=== PATIENT | female | born 1985 ===

== ENCOUNTER 2018-09-17 07:00 | Inpatient (IN) | payer OTHER ==
[2018-09-17] MEDS ORDERED: Lactated Ringer's 1,000 ML IV ONE (07:59)
[2018-09-17] MEDS ORDERED: Sodium Citrate/Citric Acid 15 ml Sol PO ONE (07:59)
[2018-09-17] MEDS ORDERED: cefOXitin IV 2 gm in Dextrose 2 GM/50 ML BAG IVPB ONE ×2 (07:59→09:17)
[2018-09-17 08:31] LABS: BASO # 0.1 K/uL (0.0-0.2); BASO % 0.7 % (0.0-2.0); EOS % 0.6 % (0.0-4.0); HEMOGLOBIN 11.6 g/dL (11.0-16.0); LYMPH # 1.8 K/uL (1.0-4.3); LYMPH % 23.4 % (20.0-40.0); MEAN CORPUSCULAR HEMOGLOBIN 28.8 pg (27.0-31.0); MEAN CORPUSCULAR HGB CONC 33.1 g/dL (33.0-37.0); MEAN PLATELET VOLUME 9.9 fL (7.2-11.7); MONO # 0.6 K/uL (0.0-0.8); MONO % 7.7 % (0.0-10.0); NEUT # 5.1 K/uL (1.8-7.0); NEUT % 67.6 % (50.0-75.0); NRBC % 0.1 % (0.0-2.0); RBC 4.03 Mil/uL (3.80-5.20); RED CELL DISTRIBUTION WIDTH 15.5 % (11.5-14.5); WHITE BLOOD COUNT 7.5 K/uL (4.8-10.8)
[2018-09-17 08:45] LABS: BLOOD UREA NITROGEN 6 mg/dL (7-17); CALCIUM 8.9 mg/dl (8.6-10.4); GFR NON-AFRICAN AMERICAN > 60
[2018-09-17 08:48] LABS: ALB/GLOB RATIO 1.2 (1.0-2.1); ALBUMIN 4.1 g/dL (3.5-5.0); ALT/SGPT 29 U/L (9-52); AST/SGOT 42 U/L (14-36)
[2018-09-17 08:50] LABS: SQUAMOUS EPITHIAL 10 /hpf (0-5); URINE BACTERIA FEW (<OCC); URINE BILIRUBIN NEGATIVE (NEGATIVE); URINE BLOOD NEGATIVE (NEGATIVE); URINE CLARITY Hazy (Clear); URINE COLOR Yellow (YELLOW); URINE GLUCOSE (UA) NORMAL (Normal); URINE LEUKOCYTE ESTERASE NEG Leu/uL (Negative); URINE PROTEIN NEGATIVE (NEGATIVE); URINE UROBILINOGEN NORMAL mg/dL (0.2-1.0)
[2018-09-17] MEDS ORDERED: Sodium Citrate/Citric Acid 15 ml Sol ONE (09:18)
[2018-09-17] MEDS ORDERED: Erythromycin 0.5% Ophth Oint 1 APPLIC/3.5 G ONE (10:09)
[2018-09-17] MEDS ORDERED: Phytonadione 1 mg/0.5 ml Inj (Neonatal) ONE (10:10)
[2018-09-17] MEDS ORDERED: Bupivacaine HCl 15 mg/2 ml Spinal Inj ONE ×2 (10:14→10:26)
[2018-09-17] MEDS ORDERED: ePHEDrine 50 mg/ml Inj ONE (10:16)
[2018-09-17] MEDS ORDERED: Morphine 1 mg/ml preservative-free Inj(Duramorph) ONE (10:16)
[2018-09-17] MEDS ORDERED: Oxytocin 20 units in LR 2,000 ML IV ONE (10:19)
[2018-09-17] MEDS ORDERED: Oxytocin 10 Units/ml Inj ONE (11:06)
[2018-09-17] MEDS ORDERED: Oxycodone/Acetaminophen 5/325 mg Tab PO PRN ×2 (12:20)
--- NOTE | 2018-09-17 17:06 | OBHP ---
Datetime: 09/17/2018 08:14 IP Adm Impression: Term, intrauterine IP Admit Plan: Admit to unit; Initiate Section protocol Admit Comment, IP Provider: Patient is a 33 year old at 38w5d ALETHA 09/26/18 for repeat electiv e C/S secondary to unknown uterine scar. Patient is doing well, offers no complaints at this time. En dorses +FM, denies CTX, VB, LOF. Issues: Denies OB Hx: 1. 2008 Primary C/S at term for high blood pressure, 3kg, peformed in [place] 2. 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 Hx: LMP 12/20/18 [facility] 14 x regular x 3 days Denies history of fibroids or ovarian cysts Denies history of STDs or abnormal pap smears Allergies: NKDA Medications: PNV, Folic acid, Vitamin C Medical History: Denies Surgical History: C/S x 1 Social History: Denies alcohol, tobacco, drug use Family History: Mother - at age 57 (unknown cause); Father alive age 59 healthy PE: See above A/P: 33 year old at 38w5d who presents for elective repeat C/S -Admit to unit -CEFM and TOCO -Admission labs: CBC, CMP, TS, UA, RPR, HIV -LR at 125 cc/hr -Diet : NPO -Cefoxitin 2gm, bictra, pepcid pre-operatively -Anesthesia notified -scallop binder to the OR -Plan discussed with Dr Prakash Iraheta DO PGY-2 Attending Note: patient seen and evaluated by me; I agree with the above as documented.. 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 Consents obtainied after a full disc ussion of risks, benefits, possible complications. Patient expressed an understanding and offered no questions. Patient last 2030 hours; last drank 2300 hours. Category 1 tracing. Patient is clinically stable. Assessment and plan as above. FHR - Baseline A Provider: 150 Contraction Comments Provider: Irregular Comments, ACOG Physical Exam: Gen: AAOx3 HEENT: pterygium on right eye Abdomen: Soft, gravid, vertical midline scar Ext: No clubbing, cyanosis, edema SVE: Deffered IP Hx Assessment: The History has been Reviewed and is Current EGA AdmitDate IP: 38.5 Vital Signs Provider: Reviewed IP Chief Complaint: Scheduled Section NICHD Variability Prov Fetus A: Moderate 6-25bpm NICHD Accel Fetus A IP Provider: [id number] FHR Category Provider Fetus A: Category I NICHD Decel Fetus A IP Provider: None Dilatation, Provider: deferred
--- NOTE | 2018-09-17 17:10 | OBDS ---
DELIVERY PERSONNEL Delivery Doctor: Frieda Randall MD Scrub Nurse: Amber Cobian OBT Electrical Test Engineer: Jaymie Valderrama RN Anesthesiologist: Albina Parada MD Resident: Dr. Iraheta MATERNAL INFORMATION Delivery Anesthesia: Spinal Placenta Cultured: No Maternal Complications: None Provider Comments: Uncomplicated repeat LTCS with atraumatic delivery of live male , ROT, Apga r's 9/9 weight 7lb. Cord pH 7.25 EBL 600mL U.O. 300mL , clear urine IVFs 2,500 mL LR; 1st litre with 40 units pitocin LABOR SUMMARY EDC: 09/26/2018 00:00 No. Babies in Womb: 0 Attempted: No Labor Anesthesia: None LABOR INFORMATION Reason for Induction: Not Applicable Oxytocin: N/A Group B Beta Strep: Positive Antibiotics # of Doses: 1 (mefoxin 2gms) Antibiotics Time of Last Dose: 09:45AM Steroids Given: None Reason Steroids Not Administered: Not Applicable MEMBRANES Membranes Rupture Method: Artificial Rupture of Membranes: 09/17/2018 10:59 Length of Rupture (hrs): 0.02 Amniotic Fluid Color: Clear Amniotic Fluid Amount: Moderate Amniotic Fluid Odor: Normal STAGES OF LABOR Stage 3 hrs: 0 Stage 3 min: 1 CSECTION DELIVERY Primary Indication: Repeat Elective CSection Urgency: Elective CSection Incidence: Repeat Labor: N/A Elective: Elective CSection Incision: Lower Uterine Transverse BABY A INFORMATION Delivery Date/Time: 09/17/2018 11:00 Method of Delivery: Born in Route : No : N/A Forceps: N/A Vacuum Extraction: N/A Shoulder Dystocia : No SHOULDER DYSTOCIA BABY A Infant Delivery Date/Time: 09/17/2018 11:00 PRESENTATION/POSITION BABY A Presentation: Cephalic Cephalic Presentation: Vertex Vertex Position: Right Occipital Transverse Breech Presentation: N/A PLACENTA INFORMATION BABY A Placenta Delivery Time : 09/17/2018 11:01 Placenta Method of Delivery: Manual Removal Placenta Status: Delivered SCORES BABY A Heart Rate 1 min: >100 bpm Resp Effort 1 min: Good Cry Reflex Irritability 1 min: Cough or Sneeze or Pulls Away Muscle Tone 1 min: Active Motion Color 1 min: Body [place], Extremities Blue SCORE 1 MIN: 9 Heart Rate 5 min: >100 bpm Resp Effort 5 min: Good Cry Reflex Irritability 5 min: Cough or Sneeze or Pulls Away Muscle Tone 5 min: Active Motion Color 5 min: Body [place], Extremities Blue SCORE 5 MIN: 9 INFANT INFORMATION BABY A Gestational Age at Delivery: 38.5 Gestational Status: Term Infant Outcome : Liveborn Infant Condition : Stable Infant Sex: Male IDENTIFICATION/MEDS BABY A ID Band Number: [id number] ID Band Location: Left Leg; Left Arm Sensor Applied: Yes Sensor Number: [id number] Sensor Location : Cord Clamp Vitamin K Given : Aquamephyton 1 mg IM Erythromycin Given: Given Both Eyes WEIGHT/LENGTH BABY A Infant Birthweight (gms): 3175 Weight (lb): 7 Infant Weight (oz): 0 Infant Length Inches: 19.00 Infant Length cms: 48.3 CORD INFORMATION BABY A No. Cord Vessels: 3 Nuchal Cord : N/A Cord pH Baby Arterial: 7.25 Infant Cord pH Baby Venous: 7.29 Cord Blood Taken: Yes Infant Suction: Mouth ASSESSMENT BABY A Infant Complications: None Physical Findings at Delivery: Within Normal Limits Infant Respirations: Appears Normal Editor Sound/ALS Called : Yes Care By: Dr. Esteves Transferred To: [facility]
--- NOTE | 2018-09-17 17:18 | PCM.SURG1 ---
Surgeon's Initial Post Op Note - Surgeon's Notes Surgeon: Sammi Randall MD Clod Puller: Tam Chavez MD. 2nd Ass't: Chelle Iraheta DO Type of Anesthesia: Spinal Anesthesia Administered By: Jorge Parada MD Pre-Operative Diagnosis: 38 weeks, previous C/S; undocumented uterine scar; anemia; Quantiferon gold (+) Operative Findings: Live male , ROT position; weight 7lb; 's 9/9. No rmal uterus; normal ovaries and fallopian tubes, bilaterally Post-Operative Diagnosis: Same; S/P repeat LTCS Operation Performed: repeat LTCS Specimen/Specimens Removed: None Estimated Blood Loss: EBL {In ML}: 600 (U.O. 300 mL, clear urine. IVFs: 2,500 mL LR; 1st litre with 40U pitocin) Blood Products Given: N/A Drains Used: No Drains Post-Op Condition: Good Date of Surgery/Procedure: 09/17/18 Time of Surgery/Procedure: 11:45
[2018-09-17] MEDS: Simethicone 80 mg Chewtab PO SCH ×2 (18:03→23:14)
--- NOTE | 2018-09-18 06:00 | OP ---
PROCEDURE DATE: 09/17/2018 SURGEON: Sammi Randall MD BATCH OR CONTINUOUS STILL OPERATOR: Tam Chavez MD SECOND HANDTOOLS REPAIRER: Chelle Iraheta DO ANESTHESIOLOGIST: Jorge Parada MD ANESTHESIA: Spinal. PREOPERATIVE DIAGNOSES: A 38 weeks' gestation, previous Caesarean section with an undocumented uterine scar, anemia, and QuantiFERON Gold positive. POSTOPERATIVE DIAGNOSES: A 38 weeks' gestation, previous Caesarean section with an undocumented uterine scar, anemia, and QuantiFERON Gold positive, status post repeat transverse lower uterine segment Caesarean section. OPERATIVE FINDINGS: Live male infant, right occipital transverse position, weight 7 pounds, Apgars 9 and 9 at 1 and 5 minutes respectively. Cord pH of 7.29. Normal uterus and normal ovaries and fallopian tubes bilaterally. OPERATION PERFORMED: Repeat transverse lower uterine segment Caesarean section. SPECIMENS: None. BLOOD LOSS: 600 mL. URINE OUTPUT: 300 mL of clear urine. INTRAVENOUS FLUIDS: A total of 2500 mL of lactated Ringer's, the first 1000 mL containing 40 units of Pitocin. BLOOD PRODUCTS: None. COMPLICATIONS: None. DESCRIPTION OF PROCEDURE: The patient was taken to the operating room after having obtained informed consent for the anticipated procedure. This included a discussion of possible risks and complications including but not limited to infection requiring antibiotics, hemorrhage requiring blood transfusion, repair of any damage to internal organs, possible Caesarean hysterectomy. The patient expressed understanding and no questions were offered. Consents were signed, dated, witnessed, and placed in the chart. The patient received Mefoxin 2 grams intravenously prior to being escorted to the operating room. A Cota catheter had also been inserted under sterile conditions in LDR #2, prior to the patient being escorted to the operating room. In the operating room, she was placed on the operating room table in a sitting position and spinal anesthesia was administered without incident. The patient was immediately repositioned in the supine manner. The heart rate was auscultated at 160 beats per minute. The abdomen was prepped and she was subsequently draped in the usual sterile fashion. Using a scalpel, a Pfannenstiel incision was made on the skin. The incision was carried down through the subcutaneous tissue using the Bovie electrocautery. The fascia was identified and was nicked in the midline. The incision was extended bilaterally also using the Bovie electrocautery. The rectus muscle was dissected off the overlying fascia. The rectus muscle was in the midline by blunt dissection. The parietoperitoneum was entered by sharp dissection. The vesicouterine reflection was identified and the bladder flap was created. A transverse incision was then made on the lower uterine segment. The incision was extended bilaterally using the bandage scissors. Amniotomy was performed and a moderate amount of clear amniotic fluid was retrieved. Atraumatic delivery of the with the findings as above then ensued. Once on the operative field, the 's mouth and nose were bulb suctioned as the umbilical cord was doubly clamped and cut. A segment of the umbilical cord was sequestered for cord pH analysis, results as above. The placenta was then delivered by manual extraction. It was grossly intact with three vessels present in the cord. The uterus was exteriorized for closure. This was done in two layers using 0 Vicryl, the first layer was in a running interlocking fashion, the second layer was in a horizontal imbricating fashion. Hemostasis was assured on the uterus using additional [id number] stitches and 2-0 Monocryl. Attention was directed to the posterior aspect of the uterus with the findings as above for the pelvic viscera. Copious irrigation was performed. Attention was then redirected to the uterine incision, it was noted to be hemostatic. The bladder flap was reapproximated using 2-0 chromic in a running fashion. The uterus was returned to the abdominal cavity and the paracolic gutters were cleared of all debris. The parietoperitoneum was reapproximated using 2-0 chromic in a running fashion. Prior to this, FloSeal was administered along the uterine incision. The parietoperitoneum was then reapproximated using 2-0 chromic in a running fashion. The rectus muscle was reapproximated using 2-0 chromic in a running fashion. The fascia was reapproximated using 1-0 Vicryl in two halves in a running fashion, and the skin was reapproximated using 3-0 Monocryl on a Nicola needle. Steri-Strips were applied, followed by a pressure bandage. The patient was repositioned in a frog-leg manner. Uterine evacuation by bimanual examination was performed and the uterus was emptied of additional clots and debris. The uterus was noted to be contracted and firm approximately one fingerbreadth below the umbilicus. The patient was transferred back to R #2 in stable condition. The infant had been transferred initially to the well baby nursery for further evaluation. Both mother and the patient were in stable condition. Dr. Tam Chavez was present throughout the entire procedure from beginning to end. His presence was necessary for the following. 1. Assuring adequate visualization of the operative field at all times. 2. The safe and atraumatic delivery of the . 3. Assuring adequate hemostasis throughout. Sammi Leobardo Randall MD MTDD
[2018-09-18 08:02] LABS: HEMOGLOBIN 10.8 g/dL (11.0-16.0); MEAN CELL VOLUME 88.1 fL (81.0-99.0); MEAN CORPUSCULAR HGB CONC 32.9 g/dL (33.0-37.0); MEAN PLATELET VOLUME 9.8 fL (7.2-11.7); RBC 3.72 Mil/uL (3.80-5.20); RED CELL DISTRIBUTION WIDTH 15.7 % (11.5-14.5); WHITE BLOOD COUNT 9.4 K/uL (4.8-10.8)
[2018-09-18] MEDS: Simethicone 80 mg Chewtab PO SCH ×5 (10:30→23:30)
[2018-09-18] MEDS: Prenatal Multivit/Folic Acid/Iron Tab PO SCH (10:30)
[2018-09-18] MEDS ORDERED: Bisacodyl 5mg EC Tab PO ONE (12:30)
--- NOTE | 2018-09-18 15:51 | OBPPN ---
Datetime: 09/18/2018 07:52 PP Pain Prov: Within normal limits PP Nausea Prov: Denies PP Flatus Prov: No PP BM Prov: No PP Heart Prov: Normal PP Lungs Prov: Normal PP Abdomen/Uterus Prov: Normal PP Lochia Prov: Normal PP C/S Incision Prov: Normal PP Comments Phys Exam Prov: PE: Heart: RRR, no murmurs Lungs: CTAB, no r/r/w Abd: Soft, appropriately tender, positive bowel sounds, uterine fundus firm 2.5 finger's breath be low umbilicus, c/s incision dressed c/d/i PP Impression Prov: Normal progression PP Plan Prov: Continue present management PP Progress Note Prov: A/P: S/P C/S POD #1 - stable, afebrile - advance diet - encourage ambulation - pain controlled when Motrin and Percocet used synergistically - continue post op management Ping Álvarez PGY-1 IP PP Procedures: None Vital Signs Provider PP: Within Normal Limits
--- NOTE | 2018-09-18 16:17 | RAD ---
Date of service: 09/18/2018 HISTORY: r/o TB, pos PPD COMPARISON: No prior. TECHNIQUE: Chest PA and lateral FINDINGS: LUNGS: No consolidation. Possible minute 1 mm or smaller granuloma the left lung base. PLEURA: No significant pleural effusion identified. No pneumothorax apparent. CARDIOVASCULAR: No aortic atherosclerotic calcification present. Normal cardiac size. No pulmonary vascular congestion. OSSEOUS STRUCTURES: No significant abnormalities. VISUALIZED UPPER ABDOMEN: Normal. OTHER FINDINGS: None. IMPRESSION: Possible tiny 1 mm or smaller granulomas. No effusion, consolidation, hilar lymphadenopathy or cavitary lesions suggested.
--- NOTE | 2018-09-19 08:30 | OBPPN ---
Datetime: 09/19/2018 07:12 PP Pain Prov: Within normal limits PP Nausea Prov: Denies PP Flatus Prov: Yes PP BM Prov: No PP Heart Prov: Normal PP Lungs Prov: Normal PP Abdomen/Uterus Prov: Normal PP Extremities Prov: Normal PP C/S Incision Prov: Normal PP Comments Phys Exam Prov: VSS PE: Gen: in no acute distress Heart: RRR, no murmurs auscultated Lungs: lungs CTA b/l anteriorly and posteriorly, no W/R/R Abd: soft, +BS, nontender; fundus 2 finger breadths; incision- clean, dry, intact; no discharge no alena Ext: no edema, no calf tenderness PP Impression Prov: Normal progression PP Plan Prov: Continue present management PP Progress Note Prov: Patient was seen and examined at bedside in no acute distress. Patient has no complaints and says shes feeling well. She is passing flatus, has not had a BM, and denies chest clifford n, dyspnea, abdominal pain, fevers. Patient says she is breast feeding and ambulating. Plan: 33year old s/p , POD#2 1. Continue current management 2. Continue motrin prn for mild pain, percocet prn for severe pain 3. Continue colace and senna for constipation 4. Continue vitamins 5. Continue breast feeding and ambulation Laura Arauz, PGY2 Vital Signs Provider PP: Reviewed; Within Normal Limits
[2018-09-19] MEDS: Simethicone 80 mg Chewtab PO SCH (10:31)
[2018-09-19] MEDS: Prenatal Multivit/Folic Acid/Iron Tab PO SCH (10:31)
[2018-09-20] MEDS: Simethicone 80 mg Chewtab PO SCH ×2 (01:10→10:15)
[2018-09-20 09:29] VITALS: BP 106/71; PULSE 92; RESP 18; O2SAT 98
[2018-09-20] MEDS: Prenatal Multivit/Folic Acid/Iron Tab PO SCH (10:15)
--- NOTE | 2018-09-20 10:28 | OBDCSUM ---
Datetime: 09/20/2018 08:40 Discharged to, Provider: Home Follow up at, Provider: [facility]UAN [facility]ANC[facility] Disch Instr Activity: Normal activity Disch Instr Diet: Regular Discharge Instructions, Provider: Routine instructions given Discharge Diagnosis, Provider: Term Delivered Discharge Time: 09/20/2018 08:40 Follow up in weeks, Provider: 09/24/2018 Disch Referrals: None Contraception discussed, Prov: No Disch Activity Restrictions: No lifting; No driving; No sexual activity; Nothing in vagina - Interco urse, tampons, douche Discharge Diagnosis Prov Other: Status post repeat section Acute blood loss anemia
--- NOTE | 2018-09-20 10:28 | OBPPN ---
Datetime: 09/20/2018 07:16 PP Pain Prov: Within normal limits PP Nausea Prov: Denies PP Flatus Prov: Yes PP BM Prov: Yes PP Breasts Prov: Normal PP Heart Prov: Normal PP Lungs Prov: Normal PP Abdomen/Uterus Prov: Normal PP Lochia Prov: Normal PP Vulva/Perineum Prov: Not Done PP Extremities Prov: Normal PP C/S Incision Prov: Normal PP Progress Prov: Not Applicable PP Comments Phys Exam Prov: PE: Gen: no acute distress Heart: RRR, +S1 +S2, no m/r/g Lungs: lungs CTAB, no r/r/w Abd: soft, +BS, nontender; fundus 3 finger breadths below umbilicus; incision covered in Steri str ips c/d/i; no discharge noted Ext: no edema, no calf tenderness PP Impression Prov: Normal progression PP Plan Prov: Discharge PP Progress Note Prov: Patient was seen and examined at bedside in no acute distress. Patient has no complaints and says she's feeling well and ready to go home. She is passing flatus, ambulating witho ut difficulty, had a nonbloody BM yesterday. She denies chest pain, dyspnea, abdominal pain, fevers. Patient says she is breast feeding and pumping. Plan: 33year old P2 s/p repeat , POD#3 1. Continue current management 2. Continue motrin prn for mild pain, percocet prn for severe pain 3. Continue colace and senna for constipation 4. Continue vitamins 5. Continue breast feeding and ambulation 6. Ready for discharge. does not want circ for baby boy. - return to clinic in 1 week for incision check. Ping Álvarez PGY-1 Attending Note: Patient seen, evaluated and examined by me with the resident. I agree with the abo ve as documented. Patient is clilnically stable. IP PP Procedures: None Vital Signs Provider PP: Within Normal Limits
[2018-09-20 16:41] VITALS: TEMP 98
--- NOTE | 2018-09-20 20:21 | OBPPN ---
Datetime: 09/20/2018 20:13 PP Progress Note Prov: Addendum As telegraphic typewriter repairer was reviewing operative report to complete and close the chart, the results of the CXR o btained 09/17/18 was reviewed. Based on the findings, it is determined that patient should have follow up as an outpatient. To this end, patient was called at [phone]. Racheal Ybarra, Bed And Breakfast Cook buzz r the Mother-Baby Unit served as video tape editor. Patient was instructed to make an appointment at [facility] with a general medicine provider when she presents 09/24/18 for her OB post-op check up. Akilah at [facility] took the call/message.
== END 2018-09-20 12:30 | disposition home or self-care (01) | DRG 370 ==
LOC: C.EROB 07:00 → C.4D 07:55 → C.4M 14:37
PROVIDERS: ADMIT Obstetrics & Gynecology; ATTEND Obstetrics & Gynecology
PROC: 10D00Z1 Extraction of Products of Conception, Low, Open Approach (ICD-10-PCS; principal; 2018-09-17)
DX: O34.211 Maternal care for low transverse scar from previous cesarean delivery (principal); O99.02 Anemia complicating childbirth; D62 Acute posthemorrhagic anemia; O32.2XX0 Maternal care for transverse and oblique lie, not applicable or unspecified; Z3A.38 38 weeks gestation of pregnancy; Z37.0 Single live birth; O75.89 Other specified complications of labor and delivery; H11.001 Unspecified pterygium of right eye; O99.824 Streptococcus B carrier state complicating childbirth